=== PATIENT | male | born 1995 | race Two or more races ===

== ENCOUNTER 2025-04-14 19:56 | Emergency (ER) | payer OTHER, BC, SELFPAY ==
--- OUTSIDE RECORDS SUMMARY | 2025-04-13 12:30 | XMS_ITS | Encounter Summary ---
Author Organization [facility] Address [address] [place] [address] Care Team Providers Care Dictaphone Transcriber Name Role Phone Sharan Pyle DO Primary Care Provider [phone] Encounter Details Date Type Department Care Team (Late Contact Info) Description 04/13/2025 12:30 PM EDT Office Visit [facility] [address] [place] [address] [address] [place], [place]ONG [address] [place] [address] Closed fracture of tuft of distal phalanx of left middle finger (Primary Dx); Crushing injury of finger, initial encounter; Left hand pain Social History Tobacco Use Types Packs/Day Years Used Date Smoking Tobacco: Never Assessed Sex and Gender Information Value Date Recorded Sex Assigned at Not on file Legal Sex Male 12:26 PM EDT Gender Identity Not on file Sexual Orientation Not on file documented as of this encounter Last Filed Vital Signs Vital Sign Reading Time Taken Comments Blood Pressure 132/84 04/13/2025 12:46 PM EDT Pulse 72 04/13/2025 12:46 PM EDT Temperature 36 C (96.8 F) 04/13/2025 12:46 PM EDT Respiratory Rate - - Oxygen Saturation 99% 04/13/2025 12:46 PM EDT Inhaled Oxygen Concentration - - Weight - - Height - - Body Mass Index - - documented in this encounter Plan of Treatment Upcoming Encounters Date Type Department Care Team (Late Contact Info) Description 04/17/2025 9:05 AM EDT Office Visit [facility] [address] [place] [address] Scheduled Orders Name Type Priority Associated Diagnoses Orde r Schedule Splint Application Procedures Routine Closed fracture of tuft of distal phalanx of left middle finger Ordered: 04/13/2025 documented as of this encounter Procedures Procedure Name Priority Date/Time Associated Diagnosis Comments XR HAND 3+ VIEWS LEFT STAT 04/13/2025 1:03 PM EDT Left hand pain documented in this encounter Results * XR hand 3+ views left (04/13/2025 1:03 PM EDT) Anatomical Region Laterality Modality Upper Extremities, Hand Left [facility] 04/13/2025 1:28 PM EDT Impressions 04/13/2025 1:28 PM EDT Comminuted minimally displaced fracture of the third distal phalanx. ELECTRONICALLY SIGNED BY: Jaron Benito DO Narrative 04/13/2025 1:28 PM EDT EXAMINATION: XR HAND 3+ VIEWS LEFT HISTORY: Hand pain after injury COMPARISONS: None available TECHNIQUE: 3 views of the hand obtained. FINDINGS: Comminuted minimally displaced fracture of the distal tuft of the third distal phalanx with associated soft tissue edema. Remaining visualized bones are intact. No dislocation. Procedure Note Jaron Benito DO - 04/13/2025 EXAMINATION: XR HAND 3+ VIEWS LEFT HISTORY: Hand pain after injury COMPARISONS: None available TECHNIQUE: 3 views of the hand obtained. FINDINGS: Comminuted minimally displaced fracture of the distal tuft of the thirddistal phalanx with associated soft tissue edema. Remaining visualizedbones are intact. No dislocation. IMPRESSION: Comminuted minimally displaced fracture of the third distal phalanx. ELECTRONICALLY SIGNED BY: Jaron Benito DO [address] PRIVATE WATCHMAN IMG XR PROCEDURES Final Res ult documented in this encounter Visit Diagnoses Diagnosis Closed fracture of tuft of distal phalanx of left middle finger- Primary Crushing injury of finger, initial encounter Left hand pain Pain in soft tissues of limb documented in this encounter Care Teams Dictaphone Transcriber Relationship Specialty Start Date End Date Sharan Pyle DO [address] [place], [place] [address]talat Blue [address] [phone] PCP - General Family Medicine 04/13/25 documented as of this encounter
--- OUTSIDE RECORDS SUMMARY | 2025-04-13 13:00 | XMS_ITS | Encounter Summary ---
Author Organization [facility] Address [address] [place] [address] Care Team Providers Care Commission Clerk Name Role Phone Sharan Pyle DO Primary Care Provider [phone] Encounter Details Date Type Department Care Team (Late st Contact Info) Description 04/13/2025 1:00 PM EDT Ancillary Procedure [facility] [address] [facility] [address] [place] [phone] Arrived Social History Tobacco Use Types Packs/Day Years Used Date Smoking Tobacco: Never Assessed Sex and Gender Information Value Date Recorded Sex Assigned at Not on file Legal Sex Male 12:26 PM EDT Gender Identity Not on file Sexual Orientation Not on file documented as of this encounter Plan of Treatment Upcoming Encounters Date Type Department Care Team (Late st Contact Info) Description 04/17/2025 9:05 AM EDT Office Visit [facility] [address] [facility] [address] [place] [address] documented as of this encounter Procedures Procedure Name Priority Date/Time Associated Diagnosis Comments XR HAND 3+ VIEWS LEFT STAT 04/13/2025 1:03 PM EDT Left hand pain documented in this encounter Results * XR hand 3+ views left (04/13/2025 1:03 PM EDT) Anatomical Region Laterality Modality Upper Extremities, Hand Left Rad[facility]ogra [facility] 04/13/2025 1:28 PM EDT Impressions 04/13/2025 [...] SIGNED BY: Jaron Benito DO [address] [facility] ADJUNCT PHLEBOTOMY INSTRUCTOR IMG XR PROCEDURES Final Res ult documented in this encounter Visit Diagnoses Not on filedocumented in this encounter Care Teams Commission Clerk Relationship Specialty Start Date End Date Sharan Pyle DO [place] Blue [address] [phone] PCP - General Family Medicine 04/13/25 documented as of this encounter
[2025-04-14 20:01] VITALS: BP 124/78; PULSE 82; TEMP 36.8; O2SAT 99; BMI 38.0
--- NOTE | 2025-04-14 20:23 | XR_ITS ---
[place] [id number] Patient Name: MARK RUANO MRN: [id number] date: 1995 Sex: M Assigned Patient Location: ER Current Patient Location: Accession/Order Number: [id number] Exam Date: 04/14/2025 20:50 Report Date: 04/16/2025 15:12 At the request of: KATELYNN HSEPHERD Procedure: XR hand LT min 3V Correction: Revised report 3 views left hand plain film COMPARISON: None HISTORY: Left hand pain. Known fracture left third digit ACUTE FINDINGS: third digit tuft fracture. Comminuted. DEGENERATIVE CHANGE: Unremarkable SOFT TISSUE FINDINGS: Third digit soft tissue swelling. No subcutaneous air. JOINT EFFUSION: None POSTOP CHANGES: None BONY MINERALIZATION: Adequate XR/XR hand LT min 3V IMPRESSION: Comminuted left third digit tuft fracture. Impression dictated by: Dennis Romo M.D. 04/16/2025 3:12 PM Dictation Location: Travel Appeal Electronically authenticated by: [id number] Y Date: 04/16/2025 15:12
--- OUTSIDE RECORDS SUMMARY | 2025-04-14 20:24 | XMS_ITS | Encounter Summary ---
Author Organization [facility] Address [address] [place] [address] Care Team Providers Care Chief I Dispatcher Name Role Phone Unavailable Primary Care Provider Unavailabl e Source Comments In the event this information is protected by the Federal Confidentiality of Alcohol and Drug AbusePatient Records regulations: The Federal rules restrict any use of the information to criminally investigate or prosecute any alcohol or drug abuse patient.[facility] Encounter Details Date Type Department Care Team (Late st Contact Info) Description 02/11/2025 Telephone Reproductive Endocrinology Infertility [address] [place] [id number] Self Social History Tobacco Use Types Packs/Day Years Used Date Smoking Tobacco: Never Assessed Area Deprivation Index Answer Date Jovani rded National Score (1-100), lower number is lower ri sk Not on file 08/06/2020 State Score (1-10), lower number is lower risk N ot on file 08/06/2020 Data from: https://www.neighborhoodatlas.medicine.[facility].edu/. Last address used for calculation Not on file 08/06/2020 Sex and Gender Information Value Date Recorded Sex Assigned at Male 09/13/2021 10:07 PM EST Legal Sex Male 12:50 PM EDT Gender Identity Male 09/13/2021 10:07 PM EST Sexual Orientation Straight 09/13/2021 10 :07 PM EST documented as of this encounter Miscellaneous Notes * Telephone Encounter - Wen Purdy - 02/11/2025 2:48 PM EDT Mailed sperm destroy form documented in this encounter Plan of Treatment Not on file documented as of this encounter Visit Diagnoses Not on filedocumented in this encounter
--- OUTSIDE RECORDS SUMMARY | 2025-04-14 20:24 | XMS_ITS | Clinical Summary ---
Author Organization [facility] Address [address] [place] [address] Care Team Providers Care Rn Wellness Name Role Phone Sharan Pyle DO Primary Care Provider Allergies No known active allergies Medications No known medications Encounters Date Type Department Care Team Description 04/13/2025 1:00 PM EDT Ancillary Procedure [facility] [address] [facility] [address] [place] [address] Arrived 04/13/2025 12:30 PM EDT Office Visit [facility] [address] [facility] [address] [place] [phone] [address] [place], [place]ONG Closed fracture of tuft of distal phalanx of left middle finger (Primary Dx); Crushing injury of finger, initial encounter; Left hand pain 04/13/2025 Results Follow-Up [facility] [address] [facility] [address] [place] [address] [address] Ben[place] NP XR hand 3+ views left 04/13/2025 Travel from Last 3 Months Social History Tobacco Use Types Packs/Day Years Used Date Smoking Tobacco: Never Assessed Sex and Gender Information Value Date Recorded Sex Assigned at Not on file Legal Sex Male 12:26 PM EDT Gender Identity Not on file Sexual Orientation Not on file Last Filed Vital Signs Vital Sign Reading Time Taken Comments Blood Pressure 132/84 04/13/2025 12:46 PM EDT Pulse 72 04/13/2025 12:46 PM EDT Temperature 36 C (96.8 F) 04/13/2025 12:46 PM EDT Respiratory Rate - - Oxygen Saturation 99% 04/13/2025 12:46 PM EDT Inhaled Oxygen Concentration - - Weight - - Height - - Body Mass Index - - Plan of Treatment Upcoming Encounters Date Type Department Care Team (Late st Contact Info) Description 04/17/2025 9:05 AM EDT Office Visit [facility] [place] [facility] [address] [place] [address] Health Maintenance Due Date Last Done Comments Influenza Vaccine (#1) 2025 11/10/2022 Procedures Procedure Name Priority Date/Time Associated Diagnosis Comments XR HAND 3+ VIEWS LEFT STAT 04/13/2025 1:03 PM EDT Left hand pain from Last 3 Months Results * XR hand 3+ views left (04/13/2025 1:03 PM EDT) Anatomical Region Laterality Modality Upper Extremities, Hand Left Radiogra phic Imaging 04/13/2025 1:28 PM EDT Impressions 04/13/2025 [...] SIGNED BY: Jaron Benito DO [address] [facility] SEARCH OPTIMIZATION ANALYST IMG XR PROCEDURES Final Res ult from Last 3 Months Care Teams Rn Wellness Relationship Specialty Start Date End Date Sharan Pyle DO [address] [place] [address] PCP - General Family Medicine 04/13/25
--- OUTSIDE RECORDS SUMMARY | 2025-04-14 20:24 | XMS_ITS | Clinical Summary ---
Author Organization [facility] Address [address] [place] [address] Care Team Providers Care Shot Packer Name Role Phone No, Physician Primary Care Provider Unavailabl e Allergies No known active allergies Medications No known medications Active Problems No known active problems Immunizations Immunization Administration Dates Next Due DTP 11/04/1995, 4,02/15/1994,1993 DTaP 10/11/1997 Hepatitis B 04/04/2000,08/31/1999,06/29/1999 IPV 10/11/1997, 6,04/17/1994,1993,1993 Influenza, Injectable, Quadr ivalent, Preservative Free 11/10/2022 Interactivo SARS-CoV-2 Vaccination 02/27/2022 MMR 06/29/1999,10/11/1994 Tdap 11/10/2022 Family History Medical History Relation Comments Hypertension Mother Relation Status Comments Father Alive Mother Alive Social History Tobacco Use Types Packs/Day Years Used Date Smoking Tobacco: Never Tobacco Cessation:Counseling Given: Not Answered Alcohol Use Standard Drinks/Week Comments Yes 0 (1 standard drink = 0.6 oz pure alcohol) once a month, 1-2 drinks each time PHQ-2 Answer Date Recorded PHQ-9 Total Score 0 11/17/2022 Sex and Gender Information Value Date Recorded Sex Assigned at Not on file Legal Sex Male 1:23 PM EDT Gender Identity Male 11/17/2022 9:30 AM EDT Sexual Orientation Straight 11/17/2022 9: 30 AM EDT Plan of Treatment Health Maintenance Due Date Last Done Comments Wellness Visit 1996 HIV Screening 2008 Hepatitis C Screening 2011 Depression Screening/Follow- Up (PHQ-2/9) 11/18/2023 11/17/2022 COVID-19 Vaccine (2023-2 5 season) 2024 02/27/2022 Influenza Vaccine (#1) 2025 11/10/2022 Tetanus: Every 10yrs 11/10/2032 11/10/2022 Pneumococcal Vaccine: Ped or At-Risk Aged Out No longer eligible b ased on patient's age to complete this topic Insurance AN[employer] BLUE/PREF/HMO/PPO [employer]/PREF/HMO/PPO Care Teams Shot Packer Relationship Specialty Start Date End Date No, Physician [facility] PCP - General 11/17/22
--- OUTSIDE RECORDS SUMMARY | 2025-04-14 20:24 | XMS_ITS | Encounter Summary ---
Author Organization [facility] Address [address] [place] [address] Care Team Providers Care Plastic Tile Layer Name Role Phone Unavailable Primary Care Provider Unavailabl e Source Comments In the event this information is protected by the Federal Confidentiality of Alcohol and Drug AbusePatient Records regulations: The Federal rules restrict any use of the information to criminally investigate or prosecute any alcohol or drug abuse patient.[facility] Encounter Details Date Type Department Care Team (Late st Contact Info) Description 10/01/2024 Patient [facility] [address] [place], [place] [phone] Provider, Ccf Reminder: Review your MyChart Caregiver(s) Social History Tobacco Use Types Packs/Day Years Used Date Smoking Tobacco: Never Assessed Area Deprivation Index Answer Date Jovani rded National Score (1-100), lower number is lower ri sk Not on file 08/06/2020 State Score (1-10), lower number is lower risk N ot on file 08/06/2020 Data from: https://www.neighborhoodatlas.medicine.[facility].edu/. Last address used for calculation Not on file 08/06/2020 Sex and Gender Information Value Date Recorded Sex Assigned at Male 09/13/2021 10:07 PM EST Legal Sex Male 12:50 PM EDT Gender Identity Male 09/13/2021 10:07 PM EST Sexual Orientation Straight 09/13/2021 10 :07 PM EST documented as of this encounter Plan of Treatment Not on file documented as of this encounter Visit Diagnoses Not on filedocumented in this encounter
--- OUTSIDE RECORDS SUMMARY | 2025-04-14 20:24 | XMS_ITS | Encounter Summary ---
Author Organization [facility] Address [address] [place] [address] Care Team Providers Care Punch Machine Hand Name Role Phone Unavailable Primary Care Provider Unavailabl e Source Comments In the event this information is protected by the Federal Confidentiality of Alcohol and Drug AbusePatient Records regulations: The Federal rules restrict any use of the information to criminally investigate or prosecute any alcohol or drug abuse patient.[facility] Encounter Details Date Type Department Care Team (Latest Contact Info) Description 03/05/2025 Patient Msg Reproductive Endocrinology Infertility [address] [place] [phone] Provider, Ccf Donate Destroy form Social History Tobacco Use Types Packs/Day Years Used Date Smoking Tobacco: Never Assessed Area Deprivation Index Answer Date Jovani rded National Score (1-100), lower number is lower ri sk Not on file 08/06/2020 State Score (1-10), lower number is lower risk N ot on file 08/06/2020 Data from: https://www.neighborhoodatlas.medicine.[facility].edu/. Last address used for calculation Not on [...]
--- OUTSIDE RECORDS SUMMARY | 2025-04-14 20:24 | XMS_ITS | Clinical Summary ---
Author Organization [facility] Address [address] [place], [place] [address] Care Team Providers Care College Sports Coach Name Role Phone Unavailable Primary Care Provider Unavailabl e Encounters Date Type Department Care Team Description 03/05/2025 Telephone Reproductive Endocrinology Infertility [address] [place] [address] (Hist), No Pcp Storage charge 03/05/2025 Patient Msg Reproductive Endocrinology [facility] [address] [place] [phone] Provider, Ccf Donate Destroy form 02/11/2025 Telephone Reproductive Endocrinology Infertility [address] [place] [phone] Self from Last 3 Months Social History Tobacco Use Types Packs/Day Years Used Date Smoking Tobacco: Never Assessed Area Deprivation Index Answer Date Jovani rded National Score (1-100), lower number is lower ri sk Not on file 08/06/2020 State Score (1-10), lower number is lower risk N ot on file 08/06/2020 Data from: https://www.neighborhoodatlas.medicine.[facility].edu/. Last address used for calculation Not on file 08/06/2020 Sex and Gender Information Value Date Recorded Sex Assigned at Male 09/13/2021 10:07 PM EST Legal Sex Male 12:50 PM EDT Gender Identity Male 09/13/2021 10:07 PM EST Sexual Orientation Straight 09/13/2021 10 :07 PM EST Plan of Treatment Health Maintenance Due Date Last Done Comments Anxiety Screening 2011 Depression Screening 2011 DTaP,Tdap,Td Vaccine (1 - Tdap) 2012 Hepatitis B Vaccine (1 of 3 - 19+ 3-dose series) 10/18 HPV Vaccine (1 - 3-dose SCDM series) 2020 Influenza Vaccine (#1) 2025 05/06/2020 HIV Screening Completed 09/14/2021 Hepatitis C Screening Completed 09/14/2021 Procedures Procedure Name Priority Date/Time Associated Diagnosis Comments WHIIVF SYPHILIS TEST Routine 09/14/2021 9:30 AM EST Encounter for fertility testing from Last 3 Months or Most Recently Relevant to Health Maintenance Results * (ABNORMAL) [facility] IVF PACKAGE 1 (09/14/2021 9:30 AM EST) Hep B Core Ab, Total Positive(A) Negative 09/15/2021 3:07 PM [facility] Hep C Antibody [place] Negative Negative 022 6:56 PM [facility] Hep B Surface Ag Negative Negative 09/14/19 6:56 PM [facility] HIV 12 Combo (Ag/Ab) Non Reactive Non Reactive 09/14/2021 6:56 PM [facility] HIV 1/2 Ab Confirmatory Test Not Indicated 09/14/2021 6:56 PM [facility] HIV Interpretation Negative 09/14/2021 6:56 PM [facility] Comment: No evidence of HIV-1 or HIV-2 infection. Should recent infection be suspected, repeat testing may be considered 2-3 weeks after this draw. HIV Information: [place] Rev. Code 3701.243(E): This information has been disclosed to you from confidential records protected from disclosure by state law. You shall make no further disclosure of this information without the specific, written, and informed release of the individual to whom it pertains or as otherwise permitted by state law. A general authorization for the release of medical or other information is not sufficient for the purpose of the release of HIV test results or diagnoses. RPR Non Reactive Non Reactive 09/15/2021 1:14 PM EST [facility] CMP.LY Blood OTHER / Unknown 09/14/2021 9 :30 AM EST 09/14/2021 10:16 AM EST us Jose Sutton MD LABORATORY Final Result [facility] [address] [place] [address] [facility] [address] [place] [address] from Last 3 Months or Most Recently Relevant to Health Maintenance Insurance BLUE CARD PPO OOS
--- OUTSIDE RECORDS SUMMARY | 2025-04-14 20:24 | XMS_ITS | Encounter Summary ---
Author Organization [facility] Address [address] [place] [address] Care Team Providers Care Pearl Glue Operator Name Role Phone Pyle, Sharan VILLAGRAN Primary Care Provider [phone] Encounter Details Date Type Department Care Team (Late st Contact Info) Description 04/13/2025 Results Follow-Up [facility] [address] [place] [address] [address] [place], [place] [address] [place] [address] XR hand 3+ views left Social History Tobacco Use Types Packs/Day Years [...] Visit [facility] [address] [facility] [address] [place] [address] documented as of this encounter Visit Diagnoses Not on filedocumented in this encounter Care Teams Pearl Glue Operator Relationship Specialty Start Date End Date Sharan Pyle DO [address] [place] [phone] PCP - General Family Medicine 04/13/25 documented as of this encounter
--- OUTSIDE RECORDS SUMMARY | 2025-04-14 20:25 | XMS_ITS | Encounter Summary ---
Author Organization [facility] Address [address] [place] [address] Care Team Providers Care Chain Splitter Name Role Phone Edenilson Sharan VILLAGRAN Primary Care Provider [phone] Encounter Details Date Type Department Care Team (Latest Contact Info) Description 04/13/2025 Travel Social History Tobacco Use Types Packs/Day Years [...] Care [address] [place] [address] documented as of this encounter Visit Diagnoses Not on filedocumented in this encounter Care Teams Chain Splitter Relationship Specialty Start Date End Date Sharan Pyle DO [address] [place] [phone] PCP - General Family Medicine 04/13/25 documented as of this encounter
--- NOTE | 2025-04-14 21:17 | ED.UPPEXIN1 ---
HPI HPI - Extremity Injury (Upper) General Chief Complaint: Extremity Injury, Upper Stated Complaint: Hand Injury Time Seen by Provider: 04/14/25 20:06 History of Present Illness HPI narrative: 29-year-old male presents here with chief complaint of left finger pain. He has a known tuft fracture to the left middle finger. Patient states he was told if the finger began to swell and he needed to come to the emergency room to have it drained. Patient does not have a subungual hematoma. He does have bruising and swelling noted to the distal fat pad. Extremity is neurovascularly intact. Related Data Home Medications ?Medication ?Instructions ?Recorded ?Confirmed No Known Home Medications 04/14/25 04/14/25 Allergies Allergy/AdvReac Type Severity Reaction Status Date / Time No Known Drug Allergies Allergy Verified 04/14/25 20:01 Review of Systems ROS Status of ROS 10 or more systems reviewed and unremarkable except as noted in history and below PFSH PFSH Social History Little interest or pleasure in doing things: not at all Feeling down, depressed, or hopeless: not at all Exam Narrative Exam Narrative: All Systems are negative except as noted/marked.All systems reviewed and otherwise negative Nurses note and vital signs reviewed and patient is not hypoxic. General: The patient appears well and in no apparent distress. Patient is resting comfortably on cart. Skin: Warm, dry, no pallor noted. There is no rash noted. Head: Normocephalic, atraumatic Eye: Normal conjunctiva, no drainage, EOMI. PERRL Ears, Nose, Mouth, and Throat: oral mucosa is moist. Nares patent. Mouth without vesicles. Ear canals patent. Tm's without Erythema Cardiovascular: Regular Rate and Rhythm Musculoskeletal: Finger bruising swelling to the distal tip consistent with his known tuft fracture the patient has no evidence of calf tenderness, no pitting edema, symmetrical pulses noted bilaterally Neurological: A&O x4, normal speech Psychiatric: Cooperative Constitutional Vital Signs, click to edit/add: Last Vital Signs Temp 98.3 F 04/14/25 20:01 Pulse 82 04/14/25 20:01 Resp 18 04/14/25 20:01 BP 124/78 04/14/25 20:01 Pulse Ox 99 04/14/25 20:01 O2 Del Method Room Air 04/14/25 20:01 Course Vital Signs Vital signs: Vital Signs Temperature 98.3 F 04/14/25 20:01 Pulse Rate 82 04/14/25 20:01 Respiratory Rate 18 04/14/25 20:01 Blood Pressure 124/78 04/14/25 20:01 Pulse Oximetry 99 04/14/25 20:01 Oxygen Delivery Method Room Air 04/14/25 20:01 Temperature 98.3 F 04/14/25 20:01 Pulse Rate 82 04/14/25 20:01 Respiratory Rate 18 04/14/25 20:01 Blood Pressure 124/78 04/14/25 20:01 Pulse Oximetry 99 04/14/25 20:01 Oxygen Delivery Method Room Air 04/14/25 20:01 MDM - Extremity Injury (Upper) MDM Narrative Medical decision making narrative: 29-year-old male presents here with chief complaint of left finger pain. He has a known tuft fracture to the left middle finger. Patient states he was told if the finger began to swell and he needed to come to the emergency room to have it drained. Patient does not have a subungual hematoma. He does have bruising and swelling noted to the distal fat pad. Extremity is neurovascularly intact. Repeated here in the emergency room. Patient does have a distal tuft fracture. Patient told to rest ice elevate. He does have bruising and swelling noted to the distal fat pad. Extremity is neurovascularly intact. Finger nailbed is pink and warm. Patient will follow-up with occupational medicine as scheduled Differential Diagnosis Differential diagnosis: Likely finger sprain and other Medical Records Attestation: I reviewed the patient's medical records. Lab Data Attestation: I reviewed the patient's lab results. Discharge Plan Discharge Chief Complaint: Extremity Injury, Upper Clinical Impression: Closed fracture of tuft of distal phalanx of finger Patient Disposition: Home, Self-Care Time of Disposition Decision: 21:16 Condition: Good Prescriptions / Home Meds: No Action No Known Home Medications Print Language: [place] Instructions: Finger Fracture (ED), P.R.I.C.E. Treatment (ED) Additional Instructions: follow up with occupational medicine as scheduled Referrals: Sharan Pyle DO [Primary Care Provider] - 1 week
--- NOTE | 2025-04-14 21:47 | PC.NURSE ---
i gave this patient verbal and written discharge orders and this patient voices yes to understanding these. at time of discharge this patient voices no concerns, needs and this patient shows no signs of distress
== END 2025-04-14 21:46 | disposition home or self-care (01) ==
PROVIDERS: Emergency Provider Emergency Medicine; PCP Family Medicine
DX: S62.633A Displaced fracture of distal phalanx of left middle finger, initial encounter for closed fracture (principal); M79.645 Pain in left finger(s); M25.48 Effusion, other site
CPT/HCPCS: 73130; 99283